=== PATIENT | male | born 1950 | race African-American/Black ===

== ENCOUNTER 2019-04-20 18:13 | Inpatient (IN) | payer MEDICARE ==
[~2019-04-20] VITALS: Ht 180.3 cm; Wt 56.2 kg
--- NOTE | 2019-04-20 20:15 | NUR ---
NURSE NOTES: Pt arrived in the unit. AAOX4. Able to make needs known. On room air. c/o generalized pain, rated it 7/10. Will give pain med once there's an order. Will insert IV later. Checked the belongings and pt signed the belonging list form. Pt has a pack of cigarette. Educated the pt that he cannot smoke in the hospital. Pt verbalized understanding. Charge Nurse Caron made aware. R heel has a blister. Overall, skin is intact. Put optifoam dressing on bilateral heels for protection. Bed in lowest position. Bed alarm is on. Call light within reach. Will continue to monitor.
[2019-04-20 20:59] VITALS: BP 124/77
[2019-04-20] MEDS ORDERED: Acetaminophen 500mg (ES) tab ORAL PRN (21:45)
[2019-04-20] MEDS ORDERED: HYDROcodone/Acetamin 10/325 tab ORAL PRN (21:45)
[2019-04-20 22:31] LABS: BASOPHILS % (AUTO) 1.4 % (0.0-2.0); EOSINOPHILS % (AUTO) 1.3 % (0.0-3.0); HEMATOCRIT 45.3 % (42.0-52.0); HEMOGLOBIN 14.7 G/DL (14.2-18.0); LYMPHOCYTES % (AUTO) 52.3 % (20.0-45.0); MEAN CORPUSCULAR VOLUME 87 FL (80-99); MONOCYTES % (AUTO) 5.8 % (1.0-10.0); NEUTROPHILS % (AUTO) 39.3 % (45.0-75.0); PLATELET COUNT 183 K/UL (150-450); RED BLOOD COUNT 5.21 M/UL (4.70-6.10); RED CELL DISTRIBUTION WIDTH 12.8 % (11.6-14.8); WHITE BLOOD COUNT 9.1 K/UL (4.8-10.8)
[2019-04-20 22:50] LABS: ALANINE AMINOTRANSFERASE 56 U/L (12-78); ALBUMIN 4.1 G/DL (3.4-5.0); ALBUMIN/GLOBULIN RATIO 1.1 (1.0-2.7); ALKALINE PHOSPHATASE 153 U/L (46-116); ANION GAP 10 mmol/L (5-15); ASPARTATE AMINO TRANSFERASE 38 U/L (15-37); BILIRUBIN,TOTAL 0.5 MG/DL (0.2-1.0); BLOOD UREA NITROGEN 20 mg/dL (7-18); CARBON DIOXIDE 27 MMOL/L (21-32); CHLORIDE 101 MMOL/L (98-107); POTASSIUM 3.9 MMOL/L (3.5-5.1); SODIUM 138 MMOL/L (136-145)
--- NOTE | 2019-04-20 23:40 | NUR ---
NURSE NOTES: Contacted Dr. Zaragoza because the pt is requesting for pain med IV push. He also wants the stronger pain med. Awaiting for Dr. Zaragoza's response. Charge Nurse Caron made aware.
[2019-04-21] VITALS: BP 150/87
--- NOTE | 2019-04-21 01:30 | NUR ---
NURSE NOTES: Pt tried to smoke a cigarette. Nova WOODY discovered that he has a cigarette continuous improvement manager. A pack of cigarette and his continuous improvement manager are now in the nursing station's drawer. Charge Nurse Caron made aware.
--- NOTE | 2019-04-21 02:00 | NUR ---
NURSE NOTES: Sent the swabs for MRSA, VRE, and CRE to the lab.
[2019-04-21 04:00] VITALS: BP 140/98
--- NOTE | 2019-04-21 04:40 | NUR ---
HAND-OFF: Report given to BONG Reardon.
[2019-04-21] MEDS: NovoLOG Insulin Flexpen SUBQ SCH ×4 (07:13→21:29)
[2019-04-21 08:00] VITALS: BP 141/81
--- NOTE | 2019-04-21 08:00 | NUR ---
NURSE NOTES: Pt resting in bed. Complained of abd pain /, no SOB noted, Dressing tigre heels. call light within reach, bed alarm on. will continue to monitor.
--- NOTE | 2019-04-21 08:04 | NUR ---
RADIOLOGY DEPT., CHEST X-RAY DONE.-P.DYE
[2019-04-21] MEDS: Morphine Sulfate 4mg/ml Inj (IV USE ONLY) IVP PRN ×3 (08:34→19:40)
[2019-04-21] MEDS: Heparin 5000 units/ml inj SUBQ SCH ×2 (08:38→21:23)
--- NOTE | 2019-04-21 09:00 | History and Physical Report ---
DATE OF ADMISSION: 04/20/2019 CHIEF COMPLAINT: Failure to thrive, weight loss, and intractable pain. HISTORY OF PRESENT ILLNESS: The patient is a 68-year-old male. He is a poor historian. According to the patient, he has a history of diabetes. He was admitted with complaints of concern about progressive weight loss, failure to thrive, and severe pain. The staff at his assisted living were concerned that the patient had dramatic weight loss and had been complaining of diffuse pain. According to the patient, he has lost up to 20 pounds in the last month. He is notably cachectic and thin . The patient only has a history of diabetes. He also has a history of a right foot drop. He is unclear of the etiology of that, but he states that it is chronic for years. He has pain in his right shoulder and bilateral hip area. He denies any melena. No bright red blood per rectum. No fevers. No chills. He denies any night sweats. PAST MEDICAL HISTORY: As above. PAST SURGICAL HISTORY: None. CURRENT MEDICATIONS: Reconciled and reviewed. ALLERGIES: None. FAMILY HISTORY: None. SOCIAL HISTORY: The patient is a smoker. No alcohol. No drugs. REVIEW OF SYSTEMS: GENERAL: Positive weight loss. HEENT: No headaches or visual changes. CARDIOPULMONARY: No chest pain or shortness of breath. GASTROINTESTINAL: No nausea or vomiting. GENITOURINARY: No urgency or frequency. MUSCULOSKELETAL: Positive generalized body aches and pains. NEUROLOGIC: No evidence of seizures. PHYSICAL EXAMINATION: VITAL SIGNS: Temperature 98 degrees, pulse 89, respirations 18, and blood pressure 124/77. GENERAL: The patient is a chronically ill-appearing thin cachectic male, in no apparent distress. NECK: Supple. There is no adenopathy. HEART: Regular rate and rhythm. LUNGS: Clear. ABDOMEN: Soft, nontender, and nondistended. EXTREMITIES: Without clubbing, cyanosis, or edema. LABORATORY DATA: Labs showed a white count of 9, hemoglobin 14, hematocrit 45, and platelets of 183,000. Sodium 138, potassium is 3.9, chloride 101, bicarb 27, BUN 20, and creatinine is 1. Glucose 169 . A1c was 10.6. Tumor markers are pending. Chest x-ray is currently pending. CT scan of the abdomen and chest are pending. ASSESSMENT: This is a 68-year-old male with only history of diabetes, who presents with aggressive weight loss and failure to thrive, unclear etiology. Concern will be about a possible underlying malignancy. Weight loss also may be due to poorly-controlled diabetes mellitus. PLAN: 1. Check tumor markers. 2. Followup chest x-ray. 3. CT scan of the chest, abdomen, and pelvis. 4. Further plan of care will be determined after review of pending tests and laboratories. Naif Zaragoza M.D. DR: SANJU JOB#: [id number] CC:
--- NOTE | 2019-04-21 09:44 | Diagnostic Imaging Report ---
Indication: Cough Technique: One view of the chest Comparison: none Findings: Lungs and pleural spaces are clear. There is thoracic scoliotic deformity. The heart size is normal. Impression: No acute process Incidental finding of scoliosis
--- NOTE | 2019-04-21 10:31 | NUR ---
RD ASSESSMENT & RECOMMENDATIONS SEE CARE ACTIVITY FOR COMPLETE ASSESSMENT DAILY ESTIMATED NEEDS: Needs based on Underweight, DM, wasting, 54.5kg 30-35 kcals/kg 2359-0384 total kcals 1-1.5 g protein/kg 55-82 g total protein 25-30 mL/kg 9193-5166 total fluid mLs NUTRITION DIAGNOSIS: 1) Increased kcal and pro needs r/t underweight status as evidenced by pt w/ generalized moderate wasting, BMI underweight per guidelines, @70% of [place] Body Weight. 2) Altered nutrition related lab value r/t diabetes as evidenced by A1C 10.6. (CURRENT DIET: CCHO MED- > NPO for CT) PO DIET RECOMMENDATIONS--->>> CCHO LOW + DOUBLE PROTEINS - Texture as tolerated - ADDITIONAL RECOMMENDATIONS: 1) Obtain a standing scale wt + Weekly weights for eval 2) Add B-complex daily for max glucose metabolism 3) F/up w/ wound eval (R heel) 4) Add Glucerna in b/w meal 5) Monitor PO intake, need for snacks
[2019-04-21 12:00] VITALS: BP 138/73
[2019-04-21 16:00] VITALS: BP 122/75
--- NOTE | 2019-04-21 16:36 | NUR ---
CASE MANAGEMENT: INITIAL REVIEW 68YO M SAYDA FROM [facility] CC: FTT. WEIGHT LOSS. INTRACTABLE PAIN. PMHx: DM. WEAKNESS. SI:WEIGHT LOSS. WEAKNESS. T 98 HR 89 RR 18 B/P 124/77 SATS 97% ON RA BUN 20 GLU 169 AST 38 ALP 153 IS: INSULIN ASPART SUBQ Q12H PATIENT ADMITTED TO MED/SURG 04/21/2019 @ 0047 DCP: PATIENT TO BE DISCHARGED TO HOME ONCE MEDICALLY CLEARED. PLAN OF CARE: CT CHEST/ABD Addendum: 04/21/19 at 1650 by Korin Montez CM INTERQUAL MET
--- NOTE | 2019-04-21 17:10 | Diagnostic Imaging Report ---
CLINICAL INDICATION:Failure thrive, weight loss, intractable pain TECHNIQUE: Patient ingested oral contrast. No IV contrast utilized, reason not stated. Spiral acquisitions obtained through the chest, abdomen, and pelvis. Multiplanar reconstructions were generated. Total dose length product 652.98 mGycm. CTDIvol(s) 9.77 mGy. Radiation dose was minimized using automated exposure control COMPARISON: none FINDINGS Chest: Chest demonstrates minimal linear atelectasis or scarring at the right lung base. No infiltrates, effusions, masses, or nodules are demonstrated. The heart size is normal. There is extensive coronary artery calcification. No mediastinal or hilar mass or adenopathy. No pericardial effusion. The thyroid is unremarkable. No axillary or chest wall mass or adenopathy. There is a thoracolumbar dextroscoliotic deformity with no significant rotoscoliotic component. There are mild degenerative changes of the thoracic spine. Abdomen pelvis: The appendix is normal. Moderate retained stool is seen within the colon. No evidence of diverticulosis or diverticulitis. Contrast traverses entirety of the small bowel and is seen as far distally as the hepatic flexure of the colon. Small bowel loops are nondilated. The stomach demonstrates apparent fundal wall thickening which is probably an artifact of under distention. Lack of IV contrast limits assessment of solid organs. The liver, gallbladder, bile ducts, pancreas, spleen, adrenals, right kidney are unremarkable. The left kidney demonstrates a 3.5 cm upper pole cyst no renal or ureteral calculi are demonstrated. No hydronephrosis nor hydroureter. No pelvic mass or adenopathy. 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 There is an old healed fracture deformity of the right medial pubic bone. There is also evidence of prior fracture deformity of the right iliac bone as well as evidence of prior bone harvesting. There is also an old healed fracture deformity of the left inferior pubic ramus. Mild degenerative changes of the left hip are noted. Degenerative changes of the lumbar spine are likewise noted. IMPRESSION: Mild wall thickening of the gastric fundus, probably an artifact of under distention No evidence of acute abnormality otherwise Moderate retained stool, correlate with any clinical history of constipation Minimal right basilar pulmonary atelectasis Evidence of fairly extensive coronary artery calcification Right hip arthroplasty prosthesis. Evidence of multiple old prior pelvic fractures and right iliac bone harvesting Scoliosis and degenerative spondylosis Incidental finding of left renal cyst The CT scanner at [facility] is accredited by the [employer] and the scans are performed using protocols designed to limit radiation exposure to as low as reasonably achievable to attain images of sufficient resolution adequate for diagnostic evaluation.
--- NOTE | 2019-04-21 19:35 | NUR ---
NURSE NOTES: Patient is in bed, awake and alert x 4. 3 side rails up. IV in tact. Complaints of pain. Pain meds will be given as ordered. Bed in lowest position. Will continue to monitor.
[2019-04-21 20:00] VITALS: BP 158/86
[2019-04-21] MEDS: Bisacodyl EC 5mg tab ORAL PRN (23:10)
[2019-04-21] MEDS: Zolpidem 5mg tab ORAL PRN (23:11)
[2019-04-22] VITALS: BP 151/98
[2019-04-22] MEDS: Morphine Sulfate 4mg/ml Inj (IV USE ONLY) IVP PRN ×5 (00:20→20:56)
[2019-04-22 04:09] VITALS: BP 158/70
[2019-04-22] MEDS: NovoLOG Insulin Flexpen SUBQ SCH ×4 (06:24→20:54)
--- NOTE | 2019-04-22 07:13 | NUR ---
NURSE NOTES: pt resting in bed. pain 310. no SOB noted. Dressing heels CDI. call light within reach, bed alarm on , will continue to monitor.
--- NOTE | 2019-04-22 07:35 | NUR ---
HAND-OFF: Report given to BONG Gar.
[2019-04-22 08:00] VITALS: BP 137/74
[2019-04-22] MEDS: Heparin 5000 units/ml inj SUBQ SCH ×2 (08:36→20:55)
[2019-04-22 11:49] VITALS: BP 157/95
[2019-04-22 16:00] VITALS: BP 145/84
--- NOTE | 2019-04-22 19:30 | NUR ---
HAND-OFF: Report given to Traci WOODY.
--- NOTE | 2019-04-22 19:33 | NUR ---
NURSE NOTES: Received patient awake,alert,verbal,sitting in bed,no complaints.
--- NOTE | 2019-04-22 19:35 | General Progress Note ---
Assessment/Plan Problem List: (1) Weakness, Weight loss (2) Diabetes mellitus out of control ICD Codes: E11.65 - Type 2 diabetes mellitus with hyperglycemia SNOMED: 96598004, 913600975 (3) COPD (chronic obstructive pulmonary disease) ICD Codes: J44.9 - Chronic obstructive pulmonary disease, unspecified SNOMED: 77804121 Status: stable, progressing Assessment/Plan: pain rx GI eval monitor bs/diabetes rx PPI Subjective ROS Limited/Unobtainable: No Constitutional: Reports: malaise, weakness HEENT: Reports: no symptoms Cardiovascular: Reports: no symptoms Respiratory: Reports: no symptoms Gastrointestinal/Abdominal: Reports: no symptoms Genitourinary: Reports: no symptoms Neurologic/Psychiatric: Reports: no symptoms Endocrine: Reports: no symptoms Hematologic/Lymphatic: Reports: no symptoms Allergies: Coded Allergies: No Known Allergies (Unverified , 04/20/19) All Systems: reviewed and negative except above Subjective c/o generalized pain. no fevers or chills. ct noted. elevated ca 19. ?gastric wall thickening. Objective Last 24 Hour Vital Signs Date Time Temp Pulse Resp B/P (MAP) Pulse Ox O2 Delivery O2 Flow Rate FiO2 04/22/19 16:24 97.0 04/22/19 16:00 97.0 71 18 145/84 (104) 96 04/22/19 11:49 97.2 81 18 157/95 (115) 97 04/22/19 08:55 Room Air 04/22/19 08:00 97.0 78 19 137/74 (95) 95 04/22/19 04:09 96.8 70 19 158/70 (99) 96 04/22/19 00:00 97.6 76 19 151/98 (115) 98 04/21/19 20:00 98.5 70 19 158/86 (110) 97 Intake and Output 04/21/19 04/22/19 19:00 07:00 Intake Total 640 ml Output Total 750 ml Balance 640 ml -750 ml Intake Oral 640 ml Output Urine Total 750 ml Height (Feet): 5 Height (Inches): 11.00 Weight (Pounds): 124 General Appearance: WD/WN, alert Neck: supple Cardiovascular: regular rhythm Respiratory/Chest: chest wall non-tender, lungs clear, normal breath sounds Abdomen: normal bowel sounds, non tender, soft, no organomegaly Edema: no edema noted Arm (L), no edema noted Arm (R), no edema noted Leg (L), no edema noted Leg (R), no edema noted Pedal (L), no edema noted Pedal (R), no edema noted Generalized Neurologic: sports athletic trainer II-XII grossly normal, no motor/sensory deficits, abnormal gait , alert, oriented x 3 Naif Zaragoza MD Apr 22, 2019 19:35
[2019-04-22 19:45] VITALS: BP 145/84
[2019-04-22] MEDS: Zolpidem 5mg tab ORAL PRN (21:59)
[2019-04-22] MEDS: Bisacodyl EC 5mg tab ORAL PRN (21:59)
[2019-04-23 00:12] VITALS: BP 140/83
[2019-04-23] MEDS: Morphine Sulfate 4mg/ml Inj (IV USE ONLY) IVP PRN ×3 (03:09→14:45)
[2019-04-23 04:13] VITALS: BP 129/79
[2019-04-23] MEDS: NovoLOG Insulin Flexpen SUBQ SCH ×4 (05:56→20:38)
--- NOTE | 2019-04-23 07:07 | NUR ---
HAND-OFF: Report given to BONG Booker.
--- NOTE | 2019-04-23 07:53 | NUR ---
NURSE NOTES: Patient received in stable condition, sleeping in bed. Breathing unlabored on room air, denies pain or SOB at this time. Urinal by the bedside. IV site on right arm observed. Cane by the bedside. Bed locked in lowest position. Call light placed within reach. Will continue to monitor.
[2019-04-23 08:00] VITALS: BP 145/97
[2019-04-23] MEDS: Heparin 5000 units/ml inj SUBQ SCH ×2 (08:42→20:35)
--- NOTE | 2019-04-23 09:33 | General Progress Note ---
Assessment/Plan Problem List: (1) Weakness, Weight loss (2) Diabetes mellitus out of control ICD Codes: E11.65 - Type 2 diabetes mellitus with hyperglycemia SNOMED: 33500465, 306364845 (3) COPD (chronic obstructive pulmonary disease) ICD Codes: J44.9 - Chronic obstructive pulmonary disease, unspecified SNOMED: 09066157 Status: stable, progressing Assessment/Plan: pain rx GI eval monitor bs/diabetes rx PPI dc planning snf Subjective ROS Limited/Unobtainable: No Constitutional: Reports: malaise, weakness HEENT: Reports: no symptoms Cardiovascular: Reports: no symptoms Respiratory: Reports: cough Gastrointestinal/Abdominal: Reports: no symptoms Genitourinary: Reports: no symptoms Neurologic/Psychiatric: Reports: no symptoms Endocrine: Reports: no symptoms Hematologic/Lymphatic: Reports: no symptoms Allergies: Coded Allergies: No Known Allergies (Unverified , 04/20/19) All Systems: reviewed and negative except above Subjective c/o generalized pain. no fevers or chills. ct noted. elevated ca 19(mild) pt is also a smoker. ?gastric wall thickening- suspect artifact Objective Last 24 Hour Vital Signs Date Time Temp Pulse Resp B/P (MAP) Pulse Ox O2 Delivery O2 Flow Rate FiO2 04/23/19 09:00 Room Air 04/23/19 08:00 98.3 84 19 145/97 (113) 97 04/23/19 04:13 97.7 72 18 129/79 (96) 98 04/23/19 03:39 97.4 04/23/19 00:12 97.4 80 18 140/83 (102) 97 04/22/19 21:14 Room Air 04/22/19 19:45 96.7 86 16 145/84 (104) 96 04/22/19 16:00 97.0 71 18 145/84 (104) 96 04/22/19 11:49 97.2 81 18 157/95 (115) 97 Intake and Output 04/22/19 04/23/19 19:00 07:00 Intake Total 600 ml Output Total 900 ml Balance -300 ml Intake Oral 600 ml Output Urine Total 900 ml # Voids 2 Height (Feet): 5 Height (Inches): 11.00 Weight (Pounds): 124 Objective General Appearance: WD/WN, alert Neck: supple Cardiovascular: regular rhythm Respiratory/Chest: chest wall non-tender, lungs clear, normal breath sounds Abdomen: normal bowel sounds, non tender, soft, no organomegaly Edema: no edema noted Arm (L), no edema noted Arm (R), no edema noted Leg (L), no edema noted Leg (R), no edema noted Pedal (L), no edema noted Pedal (R), no edema noted Generalized Neurologic: route clerk II-XII grossly normal, no motor/sensory deficits, abnormal gait , alert, oriented x 3 Naif Zaragoza MD Apr 23, 2019 09:33
--- NOTE | 2019-04-23 11:00 | NUR ---
PT EVALUATION NOTE Patient seen for initial evaluation, see complete evaluation for details. Patient demonstrates generalized weakness and impaired functional mobility, R foot drop with ambulation. Patient will benefit from skilled inpatient PT intervention to increase strength and balance for improved functional mobility and to address safety awareness. Recommend discharge to SNF once medically cleared by MD for further rehab to increase overall strength, mobility and safety. Patient may benefit from FWW for ambulation for increased safety. Addendum: 04/23/19 at 1215 by VICKY ALVAREZ PT Amended: Links added.
[2019-04-23 12:00] VITALS: BP 150/96
[2019-04-23] MEDS: Bisacodyl EC 5mg tab ORAL PRN (14:45)
[2019-04-23] MEDS ORDERED: HYDROcodone/Acetamin 10/325 tab ORAL PRN (15:00)
[2019-04-23 16:00] VITALS: BP 107/76
--- NOTE | 2019-04-23 16:23 | NUR ---
DISCHARGE PLANNING CLINICALS FAXED TO [facility] T: [phone] F: [phone] SPOKE WITH GRACIE AT [facility]....BED MAY BE AVAILABLE TOMORROW...ADULT PSYCHIATRIST WILL F/U ON FRIDAY
[2019-04-23] MEDS: Morphine Sulfate 2mg/ml Inj(IV/IM USE ONLY) IVP PRN (18:55)
--- NOTE | 2019-04-23 19:30 | NUR ---
HAND-OFF: Report given to Linden WOODY.
--- NOTE | 2019-04-23 19:53 | NUR ---
NURSE NOTES: Pt is in bed, awake and verbal. No acute distress noted. Pt instructed to call for assistance before getting out of bed. Bed locked low in position,side rails up and call light within reach.
[2019-04-23 20:00] VITALS: BP 130/81
[2019-04-23] MEDS: Zolpidem 5mg tab ORAL PRN (20:34)
--- NOTE | 2019-04-23 23:41 | CDS Physician Query ---
Clarification is required for compliance, coding accuracy, and to reflect severity of illness for this patient Dear Dr. Zaragoza Date: 04/23/19 CDS Name: Zay Zeng Patient is admitted with weight loss and failure to thrive. Patient has lost over 20 lbs last month. H&P Documentation includes: Weight loss is possibly due to underlying malignancy or poorly controlled diabetes Labs: Glucose:169 Hemoglobin A1C: 10.6 BMI: 17.3 Please respond to the following question: Is there a diagnosis specific to these symptoms or values? If so please state below. Weight loss is due to Physician signature Date Please also document in your Progress Notes and/or Discharge Summary and indicate if the condition was present on admission. ARELI
[2019-04-24] VITALS: BP 107/62
--- NOTE | 2019-04-24 01:07 | NUR ---
NURSE NOTES: Pt is in bed, asleep. No acute distress noted. Vitas stable.
[2019-04-24] MEDS: Morphine Sulfate 2mg/ml Inj(IV/IM USE ONLY) IVP PRN ×5 (01:31→20:25)
[2019-04-24 04:00] VITALS: BP 120/77
[2019-04-24] MEDS: Bisacodyl EC 5mg tab ORAL PRN (05:45)
[2019-04-24] MEDS: NovoLOG Insulin Flexpen SUBQ SCH ×4 (05:49→20:27)
--- NOTE | 2019-04-24 07:15 | NUR ---
HAND-OFF: Report given to BONG Dutton.Endorsed to follow up with doctor for stronger laxative per pt's request.
--- NOTE | 2019-04-24 08:03 | NUR ---
Patient is awake and alert, sitting up in bed ,respirations unlabored,patient sitting up in bed and eating breakfast.DR Zaragoza was here to see patient,plan possible discharge today.Call light within reach.Bed alarm is on.
[2019-04-24 08:20] VITALS: BP 144/100
[2019-04-24] MEDS ORDERED: Milk of Magnesia 30ml Ud ORAL SCH ×2 (08:30→18:15)
[2019-04-24] MEDS ORDERED: Miralax 17gm pkt ORAL PRN (08:30)
[2019-04-24] MEDS ORDERED: NOVOLOG100 UNITS1 SUBQ (08:32)
[2019-04-24] MEDS ORDERED: CLONAZEPAM1 M2 ORAL (08:32)
[2019-04-24] MEDS ORDERED: BISACODYL5 MG ORAL (08:32)
[2019-04-24] MEDS ORDERED: HYDROCODON-ACE1 EA13 ORAL (08:32)
[2019-04-24] MEDS ORDERED: AMBIEN5 MG ORAL (08:32)
--- NOTE | 2019-04-24 08:36 | General Progress Note ---
Assessment/Plan Problem List: (1) Weakness, Weight loss (2) Diabetes mellitus out of control ICD Codes: E11.65 - Type 2 diabetes mellitus with hyperglycemia SNOMED: 70092608, 384866157 (3) COPD (chronic obstructive pulmonary disease) ICD Codes: J44.9 - Chronic obstructive pulmonary disease, unspecified SNOMED: 76157107 Status: stable, progressing Assessment/Plan: pain rx outpt gi eval monitor bs/diabetes rx PPI anxiolytics bowel regime dc planning snf Subjective ROS Limited/Unobtainable: No Constitutional: Reports: malaise, weakness HEENT: Reports: no symptoms Cardiovascular: Reports: no symptoms Respiratory: Reports: no symptoms Gastrointestinal/Abdominal: Reports: constipated Genitourinary: Reports: no symptoms Neurologic/Psychiatric: Reports: anxiety Endocrine: Reports: no symptoms Hematologic/Lymphatic: Reports: no symptoms Allergies: Coded Allergies: No Known Allergies (Unverified , 04/20/19) All Systems: reviewed and negative except above Subjective c/o generalized pain. no fevers or chills. ct noted. elevated ca 19(mild) pt is also a smoker. ?gastric wall thickening- suspect artifact c/o anxiety and constipation Objective Last 24 Hour Vital Signs Date Time Temp Pulse Resp B/P (MAP) Pulse Ox O2 Delivery O2 Flow Rate FiO2 04/24/19 08:20 97.1 70 19 144/100 (115) 100 04/24/19 04:00 98.1 64 18 120/77 (91) 97 04/24/19 00:00 98.5 70 18 107/62 (77) 99 04/23/19 21:00 Room Air 04/23/19 20:00 99.0 75 18 130/81 (97) 97 04/23/19 16:00 99.1 73 19 107/76 (86) 99 04/23/19 12:00 98.0 88 19 150/96 (114) 97 04/23/19 09:00 Room Air Intake and Output 04/23/19 04/24/19 18:59 06:59 Intake Total 960 ml Output Total 1100 ml Balance -140 ml Intake Oral 960 ml Output Urine Total 1100 ml # Voids 3 Height (Feet): 5 Height (Inches): 11.00 Weight (Pounds): 124 Objective General Appearance: WD/WN, alert Neck: supple Cardiovascular: regular rhythm Respiratory/Chest: chest wall non-tender, lungs clear, normal breath sounds Abdomen: normal bowel sounds, non tender, soft, no organomegaly Edema: no edema noted Arm (L), no edema noted Arm (R), no edema noted Leg (L), no edema noted Leg (R), no edema noted Pedal (L), no edema noted Pedal (R), no edema noted Generalized Neurologic: therapist asst II-XII grossly normal, no motor/sensory deficits, abnormal gait , alert, oriented x 3 Naif Zaragoza MD Apr 24, 2019 08:36
[2019-04-24] MEDS: Heparin 5000 units/ml inj SUBQ SCH ×2 (09:00→20:26)
--- NOTE | 2019-04-24 10:50 | NUR ---
CASE MANAGEMENT: REVIEW 04/24/2019 SI:ADULT FTT. WEIGHT LOSS. WEAKNESS. T 97.1 HR 70 RR 19 B/P 144/100 SATS 100% ON RA NO LABS TODAY IS: INSULIN ASPART SUBQ Q12H GLIPIZIDE PO QAM MED/SURG STATUS DCP: PATIENT TO BE DISCHARGED TO HOME ONCE MEDICALLY CLEARED. PLAN OF CARE: CT CHEST/ABD IMPRESSION: Mild wall thickening of the gastric fundus, probably an artifact of under distention. No evidence of acute abnormality otherwise. Moderate retained stool, correlate with any clinical history of constipation. Minimal right basilar pulmonary atelectasis.
[2019-04-24 12:00] VITALS: BP 140/88
--- NOTE | 2019-04-24 14:11 | NUR ---
PT Note Attempted to see patient for treatment but patient refused; c/o pain. RN was notified; states patient is not due yet for his pain meds.
[2019-04-24 16:00] VITALS: BP 123/80
--- NOTE | 2019-04-24 18:53 | NUR ---
NURSE NOTES: Patient resting,patient complain earlier of constipation but earlier today refused to take the medication MOM.patient was educated on topic of pain medication and pain medication could contribute to having constipation.patient agree to take MOM as ordered.
--- NOTE | 2019-04-24 19:53 | NUR ---
HAND-OFF: Report given to Phi WOODY.
[2019-04-24 20:00] VITALS: BP 138/81
--- NOTE | 2019-04-24 20:22 | NUR ---
NURSE NOTES: Patient in bed, awake, alert and verbally responsive. Able to make needs known .Complained of pain 9/10, will give PRN pain medication. Respiration is even and unlabored. Skin is warm and dry. Abdomen is soft, noted no bowel movement since admission. Will give PRN stool softener. Call light is at bedside. Will continue plan of care.
[2019-04-24] MEDS: Zolpidem 5mg tab ORAL PRN (21:57)
[2019-04-25] VITALS: BP 139/80
[2019-04-25 04:00] VITALS: BP 128/80
[2019-04-25] MEDS: Morphine Sulfate 2mg/ml Inj(IV/IM USE ONLY) IVP PRN ×3 (05:08→14:07)
[2019-04-25] MEDS: NovoLOG Insulin Flexpen SUBQ SCH ×2 (06:00→12:10)
[2019-04-25] MEDS ORDERED: GlipiZIDE 5mg tab ORAL SCH (06:30)
--- NOTE | 2019-04-25 07:09 | NUR ---
HAND-OFF: Report given to BONG Choi..
--- NOTE | 2019-04-25 07:32 | NUR ---
NURSE NOTES: Patient is awake and alert and oriented, respirations unlabored. patient resting,ate breakfast.Call light within reach.
[2019-04-25 08:00] VITALS: BP 125/80
[2019-04-25] MEDS: Heparin 5000 units/ml inj SUBQ SCH (09:00)
[2019-04-25 12:00] VITALS: BP 136/94
--- NOTE | 2019-04-25 12:04 | NUR ---
CHARGE NURSE NOTES: Called [facility], spoke with Sarah reg the bed availability for the patient. Per Sarah she has to confirm room and bed and will call us back. Nursing Corking Machine Operator notified
--- NOTE | 2019-04-25 12:17 | NUR ---
CHARGE NURSE NOTES: Received call from Sarah from [facility]. Pt has a room assigned [address] and can be transferred. Primary RN notified Ambulance will be scheduled for hop picker
--- NOTE | 2019-04-25 13:43 | NUR ---
NURSE NOTES: Patient will be discharged today to [facility].patient concern about his personal Belongings that is at Don[facility]s place.Patient spoke with Facility and spoke with Don and Don will arrange for patient to get his belongings.I also spoke with Addison.
--- NOTE | 2019-04-25 14:32 | NUR ---
PT Note Attempted to see patient multiple times but patient refused.
--- NOTE | 2019-04-25 14:54 | NUR ---
NURSE NOTES: Discharge at this time with discharge instructions given.Report given to Marcia JACOB at [facility] here to transport patient to facility.IV heplock removed.ID hospital band removed. patient has his personal belongings.
--- NOTE | 2019-04-25 15:00 | NUR ---
NURSE NOTES: DR Zaragoza notified of patient discharge to [facility] Addendum: 04/25/19 at 1508 by ABRAM WOODS RN RN patient would not allow to asses heels
--- NOTE | 2019-04-25 19:00 | Discharge Summary ---
DATE OF ADMISSION: 04/20/2019 DATE OF DISCHARGE: 04/25/2019 ADMISSION DIAGNOSES: 1. Altered mental status. 2. Diabetes out of control. 3. Failure to thrive. DISCHARGE DIAGNOSES: 1. Altered mental status. 2. Diabetes out of control. 3. Failure to thrive. HOSPITAL COURSE: The patient was admitted with complaints of altered mental status, failure to thrive, and weight loss. He had an extensive workup, which included a CT scan of the abdomen. There was noted to be some thickening of the gastric wall, but this was felt to be an artifact. The patient did have an A1c of 11 and it was felt that his weight loss is likely related to uncontrolled diabetes. He will be discharged to a prison facility for [facility] and for close monitoring. We will consider repeat CAT scan in the near future. DISCHARGE MEDICATIONS: Please see discharge medication list for discharge medications. DIET: Diabetic diet. ACTIVITY: Ad-kasia. FOLLOWUP: The patient will follow up in one to two days at prison facility. Naif Zaragoza M.D. DR: Sherry JOB#: [id number] CC:
== END 2019-04-25 15:14 | DRG 638 ==
LOC: 4E 19:35
DX: E11.65 Type 2 diabetes mellitus with hyperglycemia (principal); Z68.1 Body mass index [BMI] 19.9 or less, adult; R63.4 Abnormal weight loss; F17.200 Nicotine dependence, unspecified, uncomplicated; J44.9 Chronic obstructive pulmonary disease, unspecified; R53.1 Weakness
CPT/HCPCS: 36415; 71045; 71250; 74176; 80053; 82378; 82962; 83036; 84153; 84443; 85025; 87081; J1815